=== PATIENT | female | born 1985 | race Caucasian/White ===

== ENCOUNTER 2018-08-05 15:40 | Emergency (ER) | payer SELFPAY ==
[~2018-08-05] VITALS: Ht 182.9 cm; Wt 112.3 kg
[2018-08-05] MEDS ORDERED: PEPCID AC 10MG10 MG PO (16:18)
[2018-08-05] MEDS ORDERED: ZOFRAN ODT4 MG PO (16:38)
[2018-08-05 16:40] VITALS: BP 130/69; PULSE 82; TEMP 98.9
== END 2018-08-05 16:40 | disposition home or self-care (01) ==
LOC: COL.ER 15:40
DX: S00.93XA Contusion of unspecified part of head, initial encounter (principal); W01.0XXA Fall on same level from slipping, tripping and stumbling without subsequent striking against object, initial encounter

== ENCOUNTER 2018-12-21 15:22 | Emergency (ER) | payer SELFPAY ==
[~2018-12-21] VITALS: Ht 185.4 cm; Wt 107.7 kg
[~2018-12-21 15:22] MED LIST: PEPCID AC 10MG10 MG PO; ZOFRAN ODT4 MG PO
[2018-12-21 15:40] LABS: BASO % 0.4 % (0.0-2.0); EOS # 0.1 (0.0-0.7); EOS % 0.9 % (0-4.0); GRAN # 7.4 (1.4-6.5); GRAN % 69.9 % (42.2-75.2); HEMATOCRIT 31.9 % (37.0-47.0); HEMOGLOBIN 9.7 g/dl (12.5-16.0); LYMPH # 2.3 (1.2-3.4); LYMPH % 21.7 % (20.0-51.0); MEAN CELL VOLUME 75 fl (80.0-100.0); MEAN CORPUSCULAR HEMOGLOBIN 23 pg (27.0-31.0); MEAN CORPUSCULAR HGB CONC 30 g/dl (33.0-37.0); MEAN PLATELET VOLUME 9.5 fl (7.4-10.4); MONO # 0.7 (0.1-0.6); MONO % 6.8 % (1.7-9.3); PLATELET COUNT 270 K/mm3 (130-400); RED BLOOD COUNT 4.28 M/mm3 (4.10-5.30)
[2018-12-21 15:45] LABS: BILIRUBIN,TOTAL 0.1 mg/dL (0.0-1.0); CALCIUM 9.3 mg/dL (8.4-10.2); CREATININE, serum 0.81 mg/dL (0.52-1.25); POTASSIUM 3.8 mmol/L (3.4-5.0); TOTAL PROTEIN 7.5 gm/dL (6.4-8.2)
[2018-12-21] MEDS ORDERED: ZOFRAN 4MG T4 MG/TAB PO (18:11)
[2018-12-21] MEDS ORDERED: FLEXERIL 1010 MG/TAB PO (18:11)
[2018-12-21 18:43] VITALS: BP 102/74; PULSE 63
== END 2018-12-21 19:05 | disposition home or self-care (01) ==
LOC: COL.ER 15:22
PROVIDERS: Emergency Medicine
DX: S06.0X0A Concussion without loss of consciousness, initial encounter (principal); S70.01XA Contusion of right hip, initial encounter; S14.109A Unspecified injury at unspecified level of cervical spinal cord, initial encounter; S24.109A Unspecified injury at unspecified level of thoracic spinal cord, initial encounter; H72.92 Unspecified perforation of tympanic membrane, left ear; F17.210 Nicotine dependence, cigarettes, uncomplicated; Z88.0 Allergy status to penicillin; W10.9XXA Fall (on) (from) unspecified stairs and steps, initial encounter; Y92.009 Unspecified place in unspecified non-institutional (private) residence as the place of occurrence of the external cause
CPT/HCPCS: J2270; J7030

== ENCOUNTER 2019-12-12 12:07 | Day surgery (SDC) | payer SELFPAY ==
[~2019-12-12] VITALS: Ht 185.4 cm; Wt 123.2 kg
[~2019-12-12 12:07] MED LIST changes: +FLEXERIL 1010 MG/TAB PO; +ZOFRAN 4MG T4 MG/TAB PO
[2019-12-12 13:02] LABS: BASO # 0.1 (0.0-0.2); BASO % 0.3 % (0.0-2.0); EOS % 0.3 % (0-4.0); GRAN # 11.9 (1.4-6.5); GRAN % 82.6 % (42.2-75.2); HEMOGLOBIN 10.9 g/dl (12.5-16.0); LYMPH # 1.8 (1.2-3.4); LYMPH % 12.1 % (20.0-51.0); MEAN CELL VOLUME 76 fl (80.0-100.0); MEAN CORPUSCULAR HEMOGLOBIN 22 pg (27.0-31.0); MEAN CORPUSCULAR HGB CONC 30 g/dl (33.0-37.0); MEAN PLATELET VOLUME 9.3 fl (7.4-10.4); MONO # 0.6 (0.1-0.6); MONO % 4.4 % (1.7-9.3); PLATELET COUNT 309 K/mm3 (130-400); RED BLOOD COUNT 4.87 M/mm3 (4.10-5.30); REDCELL DISTRIBUTION WIDTH-CV 17.9 % (11.5-14.5)
[2019-12-12] MEDS ORDERED: PERCOCET 325 MG1 TA2 PO (13:07)
[2019-12-12] MEDS ORDERED: ZOFRAN ODT8 MG PO (13:07)
[2019-12-12] MEDS ORDERED: FLOMAX 0.40.4 MG/CAP PO (13:08)
[2019-12-12 13:10] LABS: HEMATOCRIT 36.8 % (37.0-47.0)
[2019-12-12 13:12] LABS: ALBUMIN 4.8 gm/dL (3.5-5.0); BILIRUBIN,TOTAL 0.3 mg/dL (0.0-1.0); CALCIUM 9.9 mg/dL (8.4-10.2); CREATININE, serum 0.85 (0.52-1.25); TOTAL PROTEIN 8.7 gm/dL (6.4-8.2)
[2019-12-12 14:14] LABS: COLLECTION METHOD CLEAN CATCH
[2019-12-12 14:24] LABS: AMORPHOUS CRYSTAL Present /uL; MUCOUS Present /lpf; PH 5 (5-8); URINE APPEARANCE Turbid; URINE BACTERIA Occasional /hpf; URINE BILIRUBIN Negative (NEGATIVE); URINE BLOOD 2+ (NEGATIVE); URINE COLOR Yellow; URINE GLUCOSE Negative (NEGATIVE); URINE KETONE Negative (NEGATIVE); URINE LEUKOCYTE ESTERASE Trace (NEGATIVE); URINE NITRATE Negative (NEGATIVE); URINE PROTEIN(semi-quant) 1+ (NEGATIVE); URINE RBC >50 /hpf; URINE UROBILINOGEN Negative (NEGATIVE)
[2019-12-12 17:13] VITALS: BP 104/47; PULSE 53; TEMP 98.5
--- NOTE | 2019-12-12 18:20 | NUR ---
Patient arrived to the floor at approximately 1700 from ED via wheelchair. Patient is alert and oriented, answers questions appropriately. IVF to LAC per order. Patient denies pain or nausea at this time, call light within reach.
[2019-12-12 19:33] VITALS: BP 105/51; PULSE 66; TEMP 98.1
--- NOTE | 2019-12-12 19:42 | NUR ---
Pt complains of pain to right flank and abdomen /. Medicated with Zofran IV and Morphine 2mg IVP at this time. IV site to left AC without redness or swelling. Is alert and oriented x4. Will be NPO after midnight for surgery in AM.
[2019-12-12 23:31] VITALS: BP 114/55; PULSE 69; TEMP 98.2
[2019-12-13] VITALS (8 sets, daily range): BP systolic 92–121; BP diastolic 40–68; PULSE 53–100; TEMP 98.3–98.9
--- NOTE | 2019-12-13 00:50 | NUR ---
Pt with severe nausea and minimal emesis. Zofran given IV at this time as well as scheduled Toradol.
--- NOTE | 2019-12-13 01:41 | NUR ---
Pt still having pain even after Toradol dose. Given Morphine 2mg IVP at this time.
--- NOTE | 2019-12-13 05:23 | NUR ---
TAKES MORPHINE 2MG IVP FOR PAIN / TO RIGHT FLANK.
--- NOTE | 2019-12-13 09:42 | NUR ---
Patient showered & Ready for Or this afternoon. Ivf per orders, toradol for continued flank pain, she has voided, no stones strained.
--- NOTE | 2019-12-13 10:05 | NUR ---
Signal Inspector met with patient and patient's boyfriend Sree (ph#[phone]) to discuss discharge planning. Patient lives in [place] with Sree and sees Dr. Cristobal at [place] for primary care. Patient obtains medications from [facility] with no difficulties. Patient does not use any DME and is independent with [facility]. Patient states Sree is her DPOA but that she does not have a copy with her. Patient plans to return home upon discharge. SERENA inquired about patient's insurance because on census her coverage is listed as out of state Medicaid. Patient states she has [employer] but she doesn't have her card with her. SERENA contacted Tera, Financial Counselor and notified him of patient's coverage. SW to continue to follow as needed.
--- NOTE | 2019-12-13 10:14 | NUR ---
Pain elevated after shower. Morphine prn given.
--- NOTE | 2019-12-13 11:00 | NUR ---
Initial visit; Patient thanked Abrading Machine Tender for offering prayer and God's blessings.
--- NOTE | 2019-12-13 12:50 | NUR ---
Patietn to the Or with Сергей.
--- NOTE | 2019-12-13 16:48 | NUR ---
Patient has done well post op. She is ready to discharge home. Voided, red tinged urine. Tolerated meal tray. All discharge paperwork reviewed. diet & activity reviewed. Int dc. Flu shot given per request prior to discharge. Patient wheeled out with all belongings.
== END 2019-12-13 16:56 | disposition home or self-care (01) ==
LOC: COL.ER 12:07 → SURG 15:55 → COL.ER 15:55 → SDCO 15:55 → SURG 15:55 → SDCO 12-13 16:56 → SURG 12-13 16:56
PROVIDERS: Emergency Medicine
DX: N20.1 Calculus of ureter (principal); F17.210 Nicotine dependence, cigarettes, uncomplicated; Z90.49 Acquired absence of other specified parts of digestive tract; Z90.89 Acquired absence of other organs; Z88.0 Allergy status to penicillin; Z88.8 Allergy status to other drugs, medicaments and biological substances
CPT/HCPCS: A4216; C1769; J0690; J0696; J1100; J1885; J1956; J2270; J2405; J2550; J3010; J7030; Q9967

== ENCOUNTER 2020-12-25 22:25 | Emergency (ER) | payer SELFPAY ==
[~2020-12-25] VITALS: Ht 180.3 cm; Wt 114.1 kg
[~2020-12-25 22:25] MED LIST changes: +FLOMAX 0.40.4 MG/CAP PO; +PERCOCET 325 MG1 TA2 PO; +ZOFRAN ODT8 MG PO
[2020-12-25 23:02] LABS: COLLECTION METHOD CLEAN CATCH
[2020-12-25 23:05] LABS: BASO # 0.1 (0.0-0.2); BASO % 0.5 % (0.0-2.0); EOS # 0.2 (0.0-0.7); EOS % 1.8 % (0-4.0); GRAN # 7.3 (1.4-6.5); GRAN % 62.8 % (42.2-75.2); LYMPH # 3.1 (1.2-3.4); LYMPH % 26.8 % (20.0-51.0); MEAN CELL VOLUME 72 fl (80.0-100.0); MEAN CORPUSCULAR HEMOGLOBIN 21 pg (27.0-31.0); MEAN CORPUSCULAR HGB CONC 29 g/dl (33.0-37.0); MEAN PLATELET VOLUME 9.1 fl (7.4-10.4); MONO # 0.9 (0.1-0.6); MONO % 7.8 % (1.7-9.3); PLATELET COUNT 382 K/mm3 (130-400); RED BLOOD COUNT 4.76 M/mm3 (4.10-5.30); REDCELL DISTRIBUTION WIDTH-CV 17.7 % (11.5-14.5)
[2020-12-25 23:06] LABS: HEMATOCRIT 34.4 % (37.0-47.0)
[2020-12-25 23:09] LABS: MUCOUS Present /lpf; PH 5 (5-8); URINE APPEARANCE Hazy; URINE BACTERIA Rare /hpf; URINE BILIRUBIN Negative (NEGATIVE); URINE BLOOD Negative (NEGATIVE); URINE COLOR Yellow; URINE GLUCOSE Negative (NEGATIVE); URINE KETONE Negative (NEGATIVE); URINE LEUKOCYTE ESTERASE Negative (NEGATIVE); URINE NITRATE Negative (NEGATIVE); URINE PROTEIN(semi-quant) 1+ (NEGATIVE); URINE RBC 0-2 /hpf; URINE UROBILINOGEN Negative (NEGATIVE)
[2020-12-25] MEDS ORDERED: EXCEDRIN1 TAB PO (23:18)
[2020-12-25 23:19] LABS: ALANINE AMINOTRANSFERASE 28 U/L (4-34); ALBUMIN 4.5 gm/dL (3.5-5.0); ALKALINE PHOSPHATASE 84 U/L (50-136); ANION GAP 10 mmol/L (7-16); AST,SGOT 29 U/L (15-37); BILIRUBIN,TOTAL < 0.1 mg/dL (0.0-1.0); BLOOD UREA NITROGEN 13 mg/dL (7-17); C-REACTIVE PROTEIN 1.9 mg/dL (0.0-0.9); CALCIUM 9.4 mg/dL (8.4-10.2); CARBON DIOXIDE 25 mmol/L (22-30); CHLORIDE 104 mmol/L (98-107); CREATININE, serum 0.98 (0.52-1.25); GLUCOSE 109 mg/dL (74-106); POTASSIUM 3.6 mmol/L (3.4-5.0); SODIUM 138 mmol/L (137-145); TOTAL PROTEIN 8.9 gm/dL (6.4-8.2)
[2020-12-26] MEDS ORDERED: ZOFRAN ODT4 MG PO (01:01)
[2020-12-26] MEDS ORDERED: NORCO 325 MG-51 TAB PO (01:01)
[2020-12-26 01:11] VITALS: BP 105/84; PULSE 64; TEMP 98.3
== END 2020-12-26 01:11 | disposition home or self-care (01) ==
LOC: COL.ER 22:25
PROVIDERS: Nurse Practitioner
DX: R10.9 Unspecified abdominal pain (principal); R11.2 Nausea with vomiting, unspecified; R31.9 Hematuria, unspecified; F17.210 Nicotine dependence, cigarettes, uncomplicated; Z87.442 Personal history of urinary calculi; Z88.0 Allergy status to penicillin
CPT/HCPCS: J1170; J1885; J2405; J7030; Q9967

== ENCOUNTER 2021-05-28 13:39 | Emergency (ER) | payer SELFPAY ==
[~2021-05-28] VITALS: Ht 180.3 cm; Wt 117.3 kg
[~2021-05-28 13:39] MED LIST changes: +EXCEDRIN1 TAB PO; +NORCO 325 MG-51 TAB PO
[2021-05-28 14:05] VITALS: BP 137/88; TEMP 99
[2021-05-28 17:56] VITALS: PULSE 96
== END 2021-05-28 17:56 | disposition home or self-care (01) ==
LOC: COL.ER 13:39
DX: S90.112A Contusion of left great toe without damage to nail, initial encounter (principal); S60.211A Contusion of right wrist, initial encounter; R10.9 Unspecified abdominal pain; F17.210 Nicotine dependence, cigarettes, uncomplicated; Z90.49 Acquired absence of other specified parts of digestive tract; W10.8XXA Fall (on) (from) other stairs and steps, initial encounter